=== PATIENT | female | born 1965 | race Caucasian/White ===

== ENCOUNTER 2016-11-22 13:25 | Observation (INO) | payer OTHER ==
[~2016-11-22] VITALS: Ht 200.7 cm; Wt 123.4 kg
[~2016-11-22 13:25] MED LIST: ABILIFY5 MG PO; ASPIRIN325 MG PO; CHOLESTEROL MED; COLACE100 MG PO; EFFEXOR75 MG PO; FIORICET,ESG1 TABLET PO; FISH OIL 1,2001 EAC4 PO; FISH OIL300 MG PO; FLONASE16 G1 BOTH NARES; KLONOPIN0.5 M1 PO; LEVOTHROID137 MCG PO; LEVOTHYROXINE137 MCG PO; LISINOPRIL-HCT1 EACH PO; LITE COAT ASPI325 M1 PO; MACROBID100 MG PO; METFORMIN HCL500 M1 PO; METFORMIN HCL500 MG PO; MOBIC7.5 MG PO; NITROGLYCERIN0.4 MG SL; NORCO 5/3251 TABLET PO; PRISTIQ50 MG PO; RANEXA500 MG PO; REFRESH EYE DR1 EACH BOTH EYES; REFRESH OPTIVE15 ML BOTH EYES; SIMVASTATIN10 MG PO; SYNTHROID175 MCG PO; TOPAMAX100 MG PO; TOPAMAX200 MG PO; TOPAMAX50 MG PO; TRAZODONE HCL50 MG PO; TYLENOL EXTRA500 MG PO; VERAMYST10 GM NS
[2016-11-22 13:43] LABS: HEMATOCRIT 40.1 % (36.0-46.0); MCH 31.2 PG (29.0-34.0); MCHC 33.9 G/DL (30.0-36.0); MEAN PLAT.VOLUME 8.7 uM^3 (9.5-12.4); PLATELET COUNT 209 K/uL (156-360); RBC DIS.WIDTH-CV 12.1 % (11.8-14.6); RBC DIS.WIDTH-SD 40.8 % (39-53); RED BLOOD COUNT 4.36 M/uL (3.80-5.20); WHITE BLOOD COUNT 5.9 K/uL (4.1-10.2)
[2016-11-22 13:43] LABS: POINT-OF-CARE METER ID UU13113778
[2016-11-22 13:52] LABS: CHLORIDE 107 mEq/L (99-109); POTASSIUM 3.7 mEq/L (3.7-5.4); SODIUM 142 mEq/L (136-147)
[2016-11-22 13:53] LABS: GLUCOSE 127 mg/dL (70-99)
[2016-11-22 13:55] LABS: ANION GAP 11 MEQ/L (2-14)
[2016-11-22 13:57] LABS: GFR ESTIMATE (CALCULATED) > 59 mL/min/
[2016-11-22 13:58] LABS: UREA NITROGEN (BUN) 17 mg/dL (9-23)
[2016-11-22 14:05] LABS: TROP-I INTERPRETATION NEGATIVE; TROPONIN-I < 0.01 ng/mL (0.0-0.30)
[2016-11-22 15:33] LABS: TROP-I INTERPRETATION NEGATIVE; TROPONIN-I < 0.01 ng/mL (0.0-0.30)
[2016-11-22] MEDS ORDERED: LITE COAT ASPI325 M1 PO (16:29)
[2016-11-22] MEDS ORDERED: RANEXA500 MG PO (16:29)
[2016-11-22] MEDS ORDERED: VITAMIN D34000 UNIT PO (16:30)
[2016-11-22 17:25] VITALS: BP 114/62
[2016-11-22] MEDS ORDERED: LEVO-T137 MCG PO (17:49)
[2016-11-22 19:45] VITALS: BP 98/52
[2016-11-22 22:13] LABS: TROP-I INTERPRETATION NEGATIVE; TROPONIN-I < 0.01 ng/mL (0.0-0.30)
[2016-11-23 00:15] VITALS: BP 105/58
[2016-11-23 04:45] VITALS: BP 110/62
[2016-11-23 05:18] LABS: CHLORIDE 110 mEq/L (99-109); SODIUM 140 mEq/L (136-147)
[2016-11-23 05:21] LABS: ANION GAP 8 MEQ/L (2-14)
[2016-11-23 05:23] LABS: GFR ESTIMATE (CALCULATED) > 59 mL/min/
[2016-11-23 05:24] LABS: UREA NITROGEN (BUN) 21 mg/dL (9-23)
[2016-11-23 05:27] LABS: TROP-I INTERPRETATION NEGATIVE; TROPONIN-I < 0.01 ng/mL (0.0-0.30)
[2016-11-23 05:34] LABS: GLUCOSE 192 mg/dL (70-99); POTASSIUM 4.5 mEq/L (3.7-5.4)
[2016-11-23 06:00] LABS: HDL CHOLESTEROL 48 MG/DL (Desirable>=50); LDL CHOLESTEROL 115 mg/dL (Desirable<100); NON-HDL CHOLESTEROL 131 mg/dL (Desirable<160); TOTAL CHOLESTEROL 179 mg/dL (Desirable<200); TRIGLYCERIDES 82 MG/DL (Normal: <150)
[2016-11-23] MEDS ORDERED: RANEXA500 MG PO (07:45)
[2016-11-23 08:00] VITALS: BP 119/56
== END 2016-11-23 08:55 | disposition home or self-care (01) ==
LOC: EME 13:25 → 5WEST 16:10 → EDOF 16:10 → 5WEST 17:36
PROVIDERS: Family Medicine; Physician Assistant
DX: I25.119 Atherosclerotic heart disease of native coronary artery with unspecified angina pectoris (principal); R94.31 Abnormal electrocardiogram [ECG] [EKG]; E11.9 Type 2 diabetes mellitus without complications; I10 Essential (primary) hypertension; Z91.120 Patient's intentional underdosing of medication regimen due to financial hardship; T37.4X Poisoning by, adverse effect of and underdosing of anthelminthics; G47.30 Sleep apnea, unspecified
CPT/HCPCS: 71020; 80048; 80061; 82948; 84484; 85027; 93005; 99281; 99285; G0378; J1200; J1650; J1885; J2270; J2765; J2930; J7030

== ENCOUNTER 2017-06-04 17:27 | Emergency (ER) | payer OTHER ==
[~2017-06-04] VITALS: Ht 175.3 cm; Wt 121.4 kg
[~2017-06-04 17:27] MED LIST changes: +LEVO-T137 MCG PO; +VITAMIN D34000 UNIT PO
[2017-06-04 17:49] LABS: POINT-OF-CARE METER ID UU13113778
[2017-06-04 18:46] LABS: HEMATOCRIT 34.8 % (36.0-46.0); MCHC 34.5 G/DL (30.0-36.0); MCV 92.8 FL (83-99); MEAN PLAT.VOLUME 9.2 uM^3 (9.5-12.4); PLATELET COUNT 170 K/uL (156-360); RBC DIS.WIDTH-SD 41.1 % (39-53); RED BLOOD COUNT 3.75 M/uL (3.80-5.20); WHITE BLOOD COUNT 4.8 K/uL (4.1-10.2)
[2017-06-04 19:04] LABS: CHLORIDE 109 mEq/L (99-109); POTASSIUM 3.5 mEq/L (3.7-5.4); SODIUM 141 mEq/L (136-147)
[2017-06-04 19:05] LABS: GLUCOSE 132 mg/dL (70-99)
[2017-06-04 19:07] LABS: ANION GAP 11 MEQ/L (2-14)
[2017-06-04 19:09] LABS: GFR ESTIMATE (CALCULATED) > 59 mL/min/
[2017-06-04 19:10] LABS: UREA NITROGEN (BUN) 17 mg/dL (9-23)
[2017-06-04 19:13] LABS: TROP-I INTERPRETATION NEGATIVE; TROPONIN-I < 0.01 ng/mL (0.0-0.30)
[2017-06-04 21:38] LABS: TROP-I INTERPRETATION NEGATIVE; TROPONIN-I < 0.01 ng/mL (0.0-0.30)
[2017-06-04 22:37] VITALS: BP 118/71
== END 2017-06-04 22:38 | disposition home or self-care (01) ==
LOC: EME 17:27
PROVIDERS: Emergency Medicine
DX: R07.9 Chest pain, unspecified (principal); E11.9 Type 2 diabetes mellitus without complications; E05.00 Thyrotoxicosis with diffuse goiter without thyrotoxic crisis or storm; Z79.84 Long term (current) use of oral hypoglycemic drugs; Z79.82 Long term (current) use of aspirin
CPT/HCPCS: 71020; 80048; 82948; 84484; 85027; 93005; 99281; 99284